=== PATIENT | female | born 1985 | race Caucasian/White ===

== ENCOUNTER 2018-01-03 19:05 | Inpatient (IN) | payer OTHER, MEDICAID ==
--- NOTE | 2018-01-03 20:49 | PN ---
L&D Outpatient: Visit - Reproductive Information Estimated Due Date: 01/16/18 Gestational Age: 38 Weeks and 1 Days : 3 Para: 2 - Reason for Visit Visit Reason: evaluation for labor - Antepartal Records Antepartal Record: Reviewed, Uncomplicated - Patient History Patient History Significant: Yes Patient History Significant For: Anxiety. No current medications L&D Outpatient: ROS - Review of Systems Constitutional: Comfortable CV Complaint: No Respiratory: Shortness of Breath: No Gastrointestinal: No Nausea/Vomiting, Normal Bowel Movement Genitourinary: No Dysuria, No Bleeding - Had some bloody show last night and today. No active bleeding., No Leaking Fluid Musculoskeletal: Contractions - Still irregular. Occasional stronger UC that she breathes through Movement: Normal L&D Outpatient: Exam Vitals - Most Recent: Vital Signs: Temp Pulse Resp BP Pulse Ox 98.5 F 89 15 122/82 99 01/03/18 19:40 01/03/18 19:40 01/03/18 19:40 01/03/18 19:40 01/03/18 19:40 - Cervical Exam Cervical Exam: Posterior 4cm/80%/vtx -1. Unchanged over 1+ hours - Abdominal Exam Abdomen Exam: Non-Tender, Fundal Height Consistent with Dates Abdomen Exam Comment: Mild, irregular UCs with occasional stronger ones. Nothing regular at this time - Membranes Membrane Status: Intact - Ultrasound/Biophysical Profile Ultrasound Status: Not Done L&D Outpatient: EFM - External Monitor Findings Baseline Heart Rate: 130 External Monitor Findings: Accelerations Present, No Pattern of Variable or Late Decelerations, Variability Moderate, Baseline Stable External Monitor Findings Comment: No evidence of metabolic acidemia L&D Outpatient: Asses/Plan Assessment: A: IUP at 38-1/7 weeks not in active labor No evidence of metabolic acidemia P: Discussed ongoing expectant mgmt. Offered pt discharge home to await active labor vs. sleeping at [facility] overnight to see if labor starts. At this time pt reports that she would be more comfortable sleeping here. If no active labor by morning and VE remains unchanged will likely feel ready to go home to await active labor. Plan reviewed with Carmel Sosa CNM who will assume care at 0800 and she agrees. RN to monitor pt only as she's awake or if she reports stronger UCs or SROM. Otherwise encouraged rest and will re-eval in the AM
--- NOTE | 2018-01-04 00:42 | HP ---
General Information - General Information Maternal Age: 32 Grav: 3 Para: 2 SAB: 0 IEA: 0 Estimated Due Date: 01/16/18 Determined By: LMP Gestational Age in Weeks and Days: 38 Weeks and 1 Days Maternal Blood Type and Rh: A Positive - Results this Serology/RPR Result: Non-Reactive Rubella Result: Immune HBsAg Result: Negative HIV Result: Negative GBS Culture Result: Negative Past Medical History Delivery History: Hx Uncomplicated Vaginal Delivery Delivery History Comment: 08/2013 5lb 11oz male 12/2014 7lb 12oz female, atypical pre-eclampsia Pertinent Past Medical History: See Records Past Medical History Comment: Hx significant for anxiety Pertinent Past Surgical History: See Records Past Surgical History Comment: 2007 wisdom tooth extraction Pertinent Family History: See Records Family History Comment: Escoto genetic mutation (son), anxiety, asthma, bipolar, thyroid disease, breast cancer - Antepartal Records Antepartal Records: Reviewed, Uncomplicated Review of Systems Constitutional: Uncomfortable CV Complaint: No Respiratory: Shortness of Breath: No Gastrointestinal: No Nausea/Vomiting, Normal Bowel Movement Genitourinary: No Dysuria, No Bleeding, No Leaking Fluid Musculoskeletal: Contractions Neurological: No Headache, No Visual Changes Movement: Normal Exam Allergies/Adverse Reactions: Allergies No Known Allergies Allergy (Verified 01/03/18 19:41) Vital Signs 01/03/18 19:40 Temperature 98.5 F Pulse Rate 89 Respiratory 15 Rate Blood Pressure 122/82 (mmHg) O2 Sat by Pulse 99 Oximetry - Measurements Height: 5 ft 7 in Weight: 149 lb Weight in lbs: 149 Body Mass Index (BMI): 23.3 Pre- Weight: 120 lb Weight Gained This : 29 lbs and 0 ozs - Exam Abdomen: No Upper Quadrant Pain Breast: Breast Exam Deferred CVA: No CVA Tenderness Extremities: No Edema Heart: Normal Rhythm/Heart Sounds HEENT: No Significant Findings Lungs: Clear Bilaterally Rectal: Rectal Exam Deferred Reflexes: DTR 2+ Thyroid: No Thyromegaly - Cervical Exam 7-8cm/100%/vtx 0 station - Abdominal Exam Abdomen Exam: Non-Tender, Fundal Height Consistent with Dates - Membranes Membrane Status: Intact - Ultrasound/Biophysical Profile Ultrasound Status: Not Done EFM Findings - External Monitor Findings Baseline Heart Rate: 130 External Monitor Findings: Accelerations Present, No Pattern of Variable or Late Decelerations, Variability Moderate, Baseline Stable Contractions: Regular, Strong, 45-90 Seconds Contraction Frequency: q 2-3 min Assessment/Plan - Reason for Visit Reason for Visit: IUP at 38-2/7 weeks in labor - Plan Plan: Active Labor - Date/Time of Admission Date of Admission: 01/04/18 Time of Admission: 00:42
[2018-01-04] MEDS ORDERED: Misoprostol TAB* 200 MCG PR ONE (02:05)
[2018-01-04] MEDS ORDERED: Witch Hazel PAD* JAR TOPICAL PRN (02:05)
[2018-01-04] MEDS ORDERED: Acetaminophen TAB* 325 MG PO PRN (02:05)
[2018-01-04] MEDS ORDERED: OXYTOCIN* 10 UNITS/ML 1 ML VIAL IM ONE (02:05)
[2018-01-04] MEDS ORDERED: Dibucaine 1% 28.35 GM TUBE PR PRN (02:05)
[2018-01-04] MEDS ORDERED: Glycerin ADULT SUPP PR PRN (02:05)
[2018-01-04] MEDS: Ibuprofen TAB* 600 MG PO PRN ×4 (03:06→21:04)
[2018-01-04] MEDS ORDERED: Simethicone TAB* 80 MG TAB.CHEW PO SCH (08:30)
[2018-01-04] MEDS: Docusate CAP* 100 MG PO SCH ×3 (08:48→21:04)
[2018-01-05 06:27] LABS: ABS Basophils 0.1 10^3/ul (0-0.2); ABS Eosinophils 0.2 10^3/ul (0-0.6); ABS Lymphocytes 2.3 10^3/ul (1.0-4.8); ABS Monocytes 0.9 10^3/ul (0-0.8); ABS Neutrophils 7.1 10^3/ul (1.5-7.7); ABS Nucleated RBC 0 10^3/ul; Eosinophil % 1.6 % (0-6); Hematocrit 33 % (35-47); Hemoglobin 11.2 g/dl (12.0-16.0); Mean Corpuscular HGB Conc 34 g/dl (31-36); Mean Corpuscular Hemoglobin 27 pg (27-31); Mean Corpuscular Volume 79 fL (80-97); Mean Platelet Volume 9.4 um3 (7.4-10.4); Nucleated Red Blood Cells % 0.1; Platelet Count 166 10^3/ul (150-450); Red Blood Count 4.16 10^6/ul (4.0-5.4); Red Cell Distribution Width 15 % (10.5-15); White Blood Count 10.5 10^3/ul (3.5-10.8)
[2018-01-05 08:05] VITALS: BP 99/65
[2018-01-05] MEDS: Ibuprofen TAB* 600 MG PO PRN ×2 (08:35→14:09)
[2018-01-05] MEDS: Docusate CAP* 100 MG PO SCH ×2 (08:35→14:09)
[2018-01-05] MEDS ORDERED: Ferrous Gluconate TAB* 324 MG TAB PO SCH (09:00)
== END 2018-01-05 16:21 | disposition home or self-care (01) | DRG 774 ==
LOC: MCHOBOUT 19:05 → MCHOB 01-04 00:40
PROVIDERS: ADMIT Midwife; ATTEND Midwife
PROC: 10E0XZZ Delivery of Products of Conception, External Approach (ICD-10-PCS; principal; 2018-01-04)
PROC: 4A1HXCZ Monitoring of Products of Conception, Cardiac Rate, External Approach (ICD-10-PCS; 2018-01-04)
DX: O69.1XX0 Labor and delivery complicated by cord around neck, with compression, not applicable or unspecified (principal); O72.1 Other immediate postpartum hemorrhage; Z37.0 Single live birth; Z3A.38 38 weeks gestation of pregnancy
CPT/HCPCS: 36415; 85025; A9270-GY; J2590